=== PATIENT | male | born 1965 | race Caucasian/White ===

== ENCOUNTER 2018-03-10 09:01 | Emergency (ER) | payer OTHER ==
[~2018-03-10] VITALS: Ht 172.7 cm; Wt 74.8 kg
[~2018-03-10 09:01] MED LIST: BACTROBAN OINT22 GM TP; KETO10TA2 PO; LEVAQUIN750 MG PO; SEPTRA DS TABLE1 TAB PO; SULFAMETHOXAZOL1 TA3 PO; TRIPLE ANTIBIOT TP
== END 2018-03-10 13:13 | disposition home or self-care (01) ==
LOC: ER 09:01
DX: S90.02XA Contusion of left ankle, initial encounter (principal); X58.XXXA Exposure to other specified factors, initial encounter; Y93.89 Activity, other specified; Y92.89 Other specified places as the place of occurrence of the external cause; Y99.8 Other external cause status

== ENCOUNTER 2018-12-25 21:05 | Emergency (ER) | payer OTHER ==
[~2018-12-25] VITALS: Ht 170.2 cm; Wt 74.8 kg
== END 2018-12-25 21:46 | disposition home or self-care (01) ==
LOC: ER 21:05
DX: M43.6 Torticollis (principal)

== ENCOUNTER → 2018-12-27 11:42 | Outpatient (CLI) | payer OTHER | END | disposition home or self-care (01) | LOC: LAB 11:42 | DX: R97.20 Elevated prostate specific antigen [PSA] (principal) ==

== ENCOUNTER 2020-03-25 06:10 | Outpatient (CLI) | payer OTHER | END 2020-03-25 06:15 | disposition home or self-care (01) | LOC: LAB 06:10 | PROVIDERS: ATTEND Urology | DX: N40.0 Benign prostatic hyperplasia without lower urinary tract symptoms (principal); R97.20 Elevated prostate specific antigen [PSA]; R31.0 Gross hematuria ==

== ENCOUNTER 2020-05-17 17:18 | Emergency (ER) | payer OTHER ==
[~2020-05-17] VITALS: Ht 170.2 cm; Wt 72.6 kg
== END 2020-05-17 20:37 | disposition home or self-care (01) ==
LOC: ER 17:18
DX: M47.893 Other spondylosis, cervicothoracic region (principal); M54.2 Cervicalgia

== ENCOUNTER 2020-07-10 07:51 | Emergency (ER) | payer OTHER ==
[~2020-07-10] VITALS: Ht 170.2 cm; Wt 77.1 kg
== END 2020-07-10 11:16 | disposition home or self-care (01) ==
LOC: ER 07:51
DX: S83.8X1A Sprain of other specified parts of right knee, initial encounter (principal); X50.0XXA Overexertion from strenuous movement or load, initial encounter; Y93.89 Activity, other specified; Y92.89 Other specified places as the place of occurrence of the external cause; Y99.8 Other external cause status

== ENCOUNTER 2021-06-10 07:47 | Emergency (ER) | payer OTHER ==
[~2021-06-10] VITALS: Ht 170.2 cm; Wt 74.8 kg
[2021-06-10] MEDS ORDERED: VALACYCLOVIR500 MG PO (08:43)
[2021-06-10] MEDS ORDERED: BETAMETHASONE D15 G2 TOP (08:50)
== END 2021-06-10 08:57 | disposition home or self-care (01) ==
LOC: ER 07:47
DX: L50.9 Urticaria, unspecified (principal); Z91.013 Allergy to seafood

== ENCOUNTER 2021-10-23 06:07 | Emergency (ER) | payer OTHER ==
[~2021-10-23] VITALS: Ht 170.2 cm; Wt 81.6 kg
[~2021-10-23 06:07] MED LIST changes: +BETAMETHASONE D15 G2 TOP; +VALACYCLOVIR500 MG PO
[2021-10-23] MEDS ORDERED: KETO10TA2 PO (09:53)
== END 2021-10-23 11:47 | disposition home or self-care (01) ==
LOC: ER 06:07
DX: S29.011A Strain of muscle and tendon of front wall of thorax, initial encounter (principal); X58.XXXA Exposure to other specified factors, initial encounter; Y93.9 Activity, unspecified; Y92.9 Unspecified place or not applicable; Y99.9 Unspecified external cause status; Z91.013 Allergy to seafood

== ENCOUNTER 2022-02-08 06:11 | Outpatient (CLI) | payer OTHER | END 2022-02-08 06:12 | disposition home or self-care (01) | LOC: LAB 06:11 | PROVIDERS: ATTEND Urology | DX: N40.0 Benign prostatic hyperplasia without lower urinary tract symptoms (principal); R97.20 Elevated prostate specific antigen [PSA]; R31.1 Benign essential microscopic hematuria ==

== ENCOUNTER 2024-04-17 17:25 | Emergency (ER) | payer OTHER ==
[~2024-04-17] VITALS: Ht 170.2 cm; Wt 81.6 kg
[2024-04-17] MEDS ORDERED: ZITHROMAX500 MG PO (18:14)
[2024-04-17] MEDS ORDERED: TUSNEL LIQUID178 ML PO (18:14)
[2024-04-17] MEDS ORDERED: ZYRTEC10 M3 PO (18:14)
[2024-04-17] MEDS ORDERED: DEXAMETHASONE SODIUM PHOSPHATE 4 MG/ML VIAL IM ONE (18:15)
[2024-04-17] MEDS ORDERED: AZITHROMYCIN 500 MG TABLET PO ONE ×2 (18:15→18:23)
[2024-04-17] MEDS ORDERED: DEXAMETHASONE SODIUM PHOSPHATE 4 MG/ML VIAL ONE (18:23)
== END 2024-04-17 18:33 | disposition home or self-care (01) ==
LOC: ER 17:27
DX: J06.9 Acute upper respiratory infection, unspecified (principal); Z91.013 Allergy to seafood